=== PATIENT | male | born 1945 | race Caucasian/White ===

== ENCOUNTER 2018-10-20 10:12 | Day surgery (SDC) | payer OTHER ==
[~2018-10-20] VITALS: Ht 180.3 cm; Wt 124.5 kg
[~2018-10-20 10:12] MED LIST: ALBU6.7H IH; ALLO300T2 PO; ALPR1TAB7 PO; LISI1TAB11 PO; METO-409 PO; OMEP20CA10 PO; SODIUM CHLORIDE 0.9% 1000ML 1,000 ML IV ONE
[2018-10-20 10:51] VITALS: BP 148/94
[2018-10-20] MEDS ORDERED: PROPOFOL 10 MG/ML 20ML VIAL IV ONE (11:24)
[2018-10-20 12:00] VITALS: BP 97/63
[2018-10-20 12:06] VITALS: BP 108/80
[2018-10-20 12:10] VITALS: BP 118/73
[2018-10-20 12:21] VITALS: BP 130/59
== END 2018-10-20 12:35 | disposition home or self-care (01) ==
LOC: ENDO 10:12 → DAH 10:12 → ENDO 12:35
PROVIDERS: ATTEND Internal Medicine
DX: K63.5 Polyp of colon (principal); D12.5 Benign neoplasm of sigmoid colon; D12.7 Benign neoplasm of rectosigmoid junction; D12.8 Benign neoplasm of rectum; I10 Essential (primary) hypertension; J45.909 Unspecified asthma, uncomplicated; K21.9 Gastro-esophageal reflux disease without esophagitis; Z98.890 Other specified postprocedural states; Z86.010 Personal history of colon polyps; K57.30 Diverticulosis of large intestine without perforation or abscess without bleeding
CPT/HCPCS: 45380; 45385; 88305; 93005; A4606; J2704; J7030